=== PATIENT | female | born 1935 | race Caucasian/White ===

== ENCOUNTER 2023-10-13 11:15 | Inpatient (IN) | payer OTHER, SELFPAY ==
[2023-10-13] VITALS (35 sets, daily range): BP systolic 118–253; BP diastolic 61–158; BMI 14.3; BMI 13.0
--- NOTE | 2023-10-13 05:00 | ED.GENMED ---
History of Present Illness
General
Chief Complaint: Fall
Source: patient, ambulance crew and previous hospital records (ED visit April of this year with complaints of falls, bilateral hip pain. CT of the head, bilateral hip x-rays unremarkable. Case management consult with daughter elected to take the
patient home.)
Exam Limitations: none
Time Seen by Provider: 10/13/23 04:35
Nursing documentation reviewed up to this point in time: agreed with
History of Present Illness
History of Present Illness:
This is an 88-year-old quite frail appearing woman who resides at home with family. She has history of hypertension, hyperlipidemia, dlg-hquyddb-ltvuflmos diabetes, dementia, Parkinson's, prior UTIs who was sent to the ED by EMS after family heard
a thud and found the patient lying on the floor. She has suffered a laceration to the back of her head. Not maintained on anticoagulants.
According to EMS there was a fair amount of blood on the floor but no active bleeding from posterior scalp wound.
According to EMS family concerned that patient has had frequent falls over unknown period of time.
She also appeared somewhat lethargic for EMS but notes she is given Tylenol PM each night prior to bed.
Patient is moderately drowsy, moderately hard of hearing but opens her eyes to verbal stimuli and answers questions appropriately, she is oriented x 2. She denies headache, denies neck nor back pain.
Past History
Past History
ED Past Medical History: HTN, Hypercholesterolemia, NIDDM and Other (Urinary tract infections, dementia/Parkinson's)
ED Past Surgical History: None
Social History
Tobacco: Non-smoker
Alcohol: None
Living: with family
Family History
Family History: Other (Noncontributory)
Phy Exam
Physical Exam
Physical Exam:
GENERAL: 88-year-old quite thin and frail appearing woman. Mildly lethargic, moderately hard of hearing, opens her eyes to verbal stimuli, answering simple questions appropriately and following simple commands.
EYE: pupils equal and reactive. Extraocular muscles intact. Anicteric. There is posterior scalp laceration with overlying matted hair with dried blood. No active bleeding. Mild local tenderness to palpation but no palpable scalp hematoma nor
palpable bony abnormality.
NECK: Supple, no appreciable midline tenderness, no meningismus, no significant adenopathy.
ENT: posterior pharynx is clear, oral mucosa is mildly dry. TM clear b/l, nares patent without rhinorrhea nor epistaxis.
CARDIAC: Regular rate and rhythm. 2/6 holosystolic murmur
LUNGS: Clear breath sounds bilaterally, no acute respiratory distress, no wheezes/rales/rhonchi
ABDOMEN: Soft, nondistended, without focal tenderness, no r/g, no cvat. normoactive BS.
BACK: No midline bony tenderness. Patient able to sit up with minimal assistance. Straight leg raising is negative bilaterally. No palpable bony pelvic tenderness.
NEUROLOGICAL: Awake, mildly lethargic, oriented x 2, moderately hard of hearing. No focal neuro deficits. Motor strength is 5/5 bilaterally. Gross sensation is intact.
SKIN: Warm and dry, normal color, skin intact. No rash. There is no areas of ecchymosis nor contusions/abrasions to the extremities.
MUSCULOSKELETAL: No C/C/E. peripheral pulses are full and equal b/l. No palpable tenderness. Full range of motion of extremities without difficulty nor pain.
PSYCH: Normal and appropriate interaction.
Course
Orders/Labs/Results
Orders:
Orders
10/13/23 04:36
CT Cervical Spine W/o Iv Contr Urgent
Comment:
Reason For Exam: fall, head injury-change in MS
CT Head W/o Iv Contrast Urgent
Comment:
Reason For Exam: fall, head injury
10/13/23 05:00
Complete Blood Count/With Diff Urgent
Comprehensive Metabolic Panel Urgent
Magnesium Urgent
TSH Reflex To Free T4 Urgent
10/13/23 05:51
Urinalysis Reflex To Culture Urgent
Date Specimen was Collected: 10/13/23
Time Specimen was Collected: 05:41
Urine Microscopic Reflex Cult Urgent
Urine Culture Urgent
HOWARD Source: U
Specimen Description:
Date Specimen was Collected: 10/13/23
Time Specimen was Collected: :
Abnormal Lab Results
10/13/23 10/13/23
05:00 05:51
RBC 4.06 L 10^6/uL
(4.20-5.40)
MCH 32.3 H pg
(27.0-31.0)
Abs Immat Gran (auto) 0.1 H 10^3/uL
(0-0.05)
Immature Gran % 1.4 H %
(0-0.5)
BUN 26 H mg/dl
(7-17)
Leukocyte Esterase Rfl 1+ A
(Negative)
10/13/23 05:00
10/13/23 05:00
Vital Signs
Initial and Last Documented VS:
Initial Vital Signs
Temp Pulse Resp BP Pulse Ox
98.3 F 112 18 158/98 99
10/13/23 04:34 10/13/23 04:34 10/13/23 04:34 10/13/23 04:34 10/13/23 04:34
Last Documented Vital Signs
Temp Pulse Resp BP Pulse Ox
98.3 F 68 16 168/62 97
10/13/23 04:34 10/13/23 05:45 10/13/23 05:45 10/13/23 06:00 10/13/23 06:15
Procedures
Laceration Closure
Superior Posterior Occipital:
Status of Wound: clean
Size of Wound in cm: 2
Description of Wound Edges: sharp and surrounded by abrasion
Preparation: cleaned with saline
Anesthesia: 1% Lidocaine with epi and added Na Bicarb to local
Revision/Debridement: routine- no revision and irrigate-direct pressure
Wound exploration: explored to base- no FB
Skin Closure Material: skin justine
Number of sutures: 4
MDM/Problems Addressed
Differential Diagnosis Includes:
Elderly, frail woman suffered an unwitnessed fall striking the back of her head, has suffered a posterior scalp laceration that is yet to be further explored.
Due to advanced age, frailty, lethargy, concern for intracranial injury thus will check CT of the head as well as CT of the cervical spine.
There is no other traumatic findings of extremities and although EMS reports frequent falls, this is not reflected in patient's exam, no evidence of extremity ecchymosis acute nor subacute.
She is quite thin and frail.
If she has been suffering falls more recently, concern for anemia, electrolyte abnormality, hypothyroidism thus will check labs. Will also check urinalysis.
*Radiology
Radiology exam reviewed: radiology read reviewed
*Pulse Oximetry
Patient hypoxic: no
*Critical Care Note
Total Time (30-74mins, 75-104mins- exclusive of procedures): Not Applicable
Update Note
Update Note:
10/13/2023 0530 AM
Upon return from CAT scan, occipital scalp laceration thoroughly cleansed and irrigated with normal saline solution revealing a 2 cm vertical laceration that is only dermal in depth with minimal focal abrasion. There is no active bleeding. There
is mild local hematoma/soft tissue swelling that is mildly tender to palpation.
Laceration repaired with 4 justine.
Labs thus far unremarkable. Awaiting TSH and urinalysis. Awaiting CT results.
10/13/2023 0633 AM
Daughter is at bedside who is primary ceramic sprayer for her mom and reports that her mother does not fall often and in fact the last time she fell was April of this year and she was evaluated in this ED 1 week after fall due to bilateral hip pain.
She was discharged to home, used a walker for some time after that visit but has been doing quite well, has graduated from not requiring the walker and ambulates independently.
She does have history of dementia, worse at nighttime and was initially prescribed trazodone to take at nighttime but this was causing significant sedation thus daughter discontinue trazodone and instead has been using Tylenol PM which seems to be
effective in helping her mother sleep. She believes she got up out of bed and tripped over her dog which caused her fall tonight.
CT of the head concerning for subtle subdural hematoma left tentorial as well as a tiny hemorrhagic contusion left frontal lobe measuring [address] of the cervical spine is unremarkable. There is no calvarial fracture.
Case discussed with neurosurgery, Dr. Ling, images reviewed. [place] text, She recommends patient remain at [facility], admit to ICU with plan to repeat CAT scan in 6 hours.
Will admit to hospitalist service.
ED Attending Note
-
Portions of this chart may have been created with voice recognition software.� Occasional wrong word or��sound alike� substitutions may have occurred due to the inherent limitations of voice recognition software.
Discharge Plan
Departure
Patient Disposition: Admit
Date of Disposition: 10/13/23
Time of Disposition: 06:37
Admit to: ICU
Presentation/result/management discussed w/ accepting MD/DO: Hospitalist
Discharge Problem:
mechanical fall at home, small acute subdural hematoma, small hemorrhagic contusion L frontal
Referrals:
UNKNOWN - PT NOT,INTERVIEWE [Unknown Provider] -
Interventions
Interventions:
*Risk Screen - Suicide Last Done: 10/13/23 04:34
*General Assessment Last Done: 10/13/23 04:34
*Neglect/Abuse Screening Last Done: 10/13/23 04:34
*ED COVID-19 Vaccine History Last Done: 10/13/23 04:34
ED-Musculoskeletal Assessment Last Done: 10/13/23 04:40
ED- Neurological Assessment Last Done: 10/13/23 04:40
ED-Skin Assessment Last Done: 10/13/23 04:40
Discharge Date and Time
Print Language: POLISH
[2023-10-13 05:08] LABS: % Basophils 0.9 % (0-2); % Eosinophils 1.9 % (0-6); % Immature Granulocytes 1.4 % (0-0.5); % Lymphocytes 30.8 % (20.5-51.1); % Monocytes 5.9 % (1.7-9.3); % Neutrophils 59.1 % (42.2-75.2); Absolute Basophils 0.1 10^3/uL (0-0.2); Absolute Eosinophils 0.2 10^3/uL (0-0.7); Absolute Immature Granulocytes 0.1 10^3/uL (0-0.05); Absolute Lymphocytes 2.7 10^3/uL (1.2-3.4); Absolute Monocytes 0.5 10^3/uL (0.1-0.6); Absolute Neutrophils 5.1 10^3/uL (1.4-6.5); Hematocrit 38.5 % (37.0-47.0); Hemoglobin 13.1 g/dL (12.0-16.0); Mean Corpuscular Hgb 32.3 pg (27.0-31.0); Mean Corpuscular Volume 94.8 fL (81.0-99.0); Nucleated Red Blood Cells % 0 %; Platelet Count 292 10^3/uL (130-400); Red Blood Cell Count 4.06 10^6/uL (4.20-5.40); Red Cell Dist. Width 13.2 % (11.5-14.5); White Blood Cell Count 8.6 10^3/uL (4.8-10.8)
[2023-10-13 05:29] LABS: ALT (SGPT) 11 U/L (0-35); AST (SGOT) 14 U/L (14-36); Albumin 4.4 g/dl (3.5-5.0); Alkaline Phosphatase 97 U/L (38-126); Blood Urea Nitrogen 26 mg/dl (7-17); Calcium 9.8 mg/dl (8.4-10.2); Carbon Dioxide 30 mmol/L (22-30); Chloride 105 mmol/L (98-107); Estimated Creatinine Clearance 24 ml/min; Glucose 98 mg/dl (70-99); Sodium 141 mmol/L (135-145); Total Bilirubin 0.8 mg/dl (0.2-1.3); Total Protein 7.5 g/dl (6.3-8.2); eGFR > 60.00
[2023-10-13 06:00] LABS: TSH Reflex To Free T4 2.89 uIU/ml (0.47-4.68)
[2023-10-13 06:13] LABS: Urine Albumin Negative (Neg - Trace); Urine Bilirubin Negative (Negative); Urine Character Clear (Clear); Urine Color Straw; Urine Glucose Negative (Negative); Urine Ketone Negative (Negative); Urine Leukocyte 1+ (Negative); Urine Nitrite Negative (Negative); Urine Occult Blood Negative (Negative); Urine Specific Gravity 1.005 (<1.030); Urine Urobilinogen Negative (Neg - 1+)
[2023-10-13 06:39] LABS: Urine Bacteria Many (Negative); Urine Squamous Cell >30 /LPF (Few)
[2023-10-13 06:40] LABS: Urine Red Blood Cell 0-2 /HPF (0-2); Urine White Cell 21-25 /HPF (0-5)
[2023-10-13 07:06] LABS: APTT 26.1 Sec (23.4-35.0); INR 0.94; PT 12.6 Sec (11.4-14.6)
[2023-10-13] MEDS: APRESOLINE 10 MG IV (08:00)
[2023-10-13] MEDS: OFIRMEV 100 IV (09:15)
--- NOTE | 2023-10-13 10:03 | ED.ATTNOTE ---
ED Attending Note
ED Attending Note
Patient seen and examined by attending physician: Yes
I performed the substantive portion of visit, reviewed & personally made and approve the management plan that is documented in note by myself or NARGIS.: Yes
ED Attending Note:
10:00 AM patient appears very anxious and is crying. She denies worsening headache but is less directable. Patient will be given a small amount of Ativan so she relaxes and we will repeat the CT head to make sure that there is no change in the
subdural hematoma.
-
Portions of this chart may have been created with voice recognition software.� Occasional wrong word or��sound alike� substitutions may have occurred due to the inherent limitations of voice recognition software.
[2023-10-13] MEDS: ATIVAN 0.5 MG IV ×2 (10:11→22:33)
--- NOTE | 2023-10-13 11:54 | CON.INTV ---
Addendum entered and electronically signed by Brian Escalona MD 10/13/23 12:14:
Additional hx from daughter obtained by phone.
Baseline, patient is able to ambulate with walker and assistance. She is also able to feed herself, does talk. She does have periods of of increased lethargy and unresponsiveness which did not attribute to her dementia/Parkinson's
Encouraged daughter to discuss with son (Nicholas) who is power of corporate attorney advanced directives
Sequential teds for DVT prophylaxis. Hold on chemical prophylaxis until follow-up imaging confirm stability
Original Note:
Consultation
Consultation Request
Date/Time Consultation Requested: 10/12
Date/Time Consultation Performed: 10/12
Reason for Consultation: Critical care
Medical History
-
History of Present Illness:
History obtained from the chart as patient is not able to give much history. Patient was brought to [facility] by ambulance crew because of fall. Patient resides at home with family. She has a history of Parkinson's, dementia, diabetes,
recurrent UTIs. She was found lying on the floor and had a laceration on the back of her head. Per ED records, there was blood on the floor. Upon arrival to [facility], patient afebrile, pulse 112, breathing 18, blood pressure 158/98,
99%. Patient apparently has a history of multiple falls. CT head reveals subtle subdural hematoma in the left tentorial region, measuring 6 mm. Cervical spine imaging negative. Patient was admitted to ICU for monitoring. Neurosurgery aware
Patient is following commands, moving extremities, speaks 1 word answers but in general is lethargic. She is able to lift her head up. Pupils are equal and reactive
She relayed to the nurse that she would like to go home
.
PMH: Parkinson's dementia, recurrent UTIs, history of multiple falls in the past last April 2023 with hip contusion, hypertension, hyperlipidemia, diabetes
Past Medical History
Past Medical History: None (Per HPI)
Past Surgical History: None (Per HPI)
Social History
Tobacco: Non-smoker
Alcohol: None
Drug: None
Living: With Family
Family History
Family History: Unable to Obtain
Allergies / Home Medications
Allergies
Allergy/AdvReac Type Severity Reaction Status Date / Time
No Known Allergies Allergy Verified 10/13/23 07:22
Home Medications
�Medication �Instructions �Recorded �Confirmed �Last Taken �Type
diphenhydramine 25 1 tab PO HS Sleep 10/13/23 10/13/23 10/12/23 History
mg-acetaminophen 500 mg tablet
(Tylenol PM Extra Strength)
Review of Systems
-
Unable to Obtain full review of systems at this time due to: Dementia
Vitals / Labs / Diagnostic Testing
Vital Signs
Temp Pulse Resp BP Pulse Ox
98.5 F 84 16 181/66 99
10/13/23 09:25 10/13/23 11:45 10/13/23 11:45 10/13/23 11:45 10/13/23 11:45
Lab Data
10/13/23 05:00
10/13/23 05:00
Laboratory Results
10/13/23
06:31
PT 12.6
INR 0.94
APTT 26.1
Diagnostic Testing:
Physical Exam
-
HEENT: Normocephalic, Anicteric and Other (Cachectic)
Cardiovascular: S1/S2, Regular Rhythm, Murmur (1-2/6) and Rub (n)
Respiratory: Wheeze (n), Rales (n), Rhonchi (n) and Non-Labored Respirations
GI: Soft, Non Distended and Non Tender
Neurology: Other (Lethargic but arousable. Moves extremities to command, able to lift head up minimally)
Skin: Other (No clubbing, cyanosis) and Other (Scalp laceration noted, minimal swelling, no active bleeding)
General: Comfortable
Assessment
-
88-year-old female with Parkinson's dementia, history of falls in the past, last fall April 2023 with hip contusion, apparently fell was found lying on the floor with blood and laceration to the back of the head. Small subdural hematoma 6 mm
noted per imaging. Patient admitted to ICU for monitoring
Status post fall, subdural hematoma 6 mm
History of falls per records
Last fall April 2023 per family
Parkinson's dementia
Aortic sclerosis murmur
Mild pulm hypertension per echo 2014
Hypertension/hyperlipidemia
History of recurrent UTIs
Diabetes
Cachexia
Plan/recommendations
At this time, patient appears to be comfortable
She is without complaints. Hypertension noted
Scalp laceration noted
Patient is not on any blood thinners
Moving forward
Continue with frequent neurochecks
Monitor blood pressure. Avoid hypotension
Maintain systolic pressure greater than 110
Follow blood sugars
Normal saline IV fluids
End-tidal CO2 monitoring
Head of bed elevated
Reviewed with critical care nursing
We will follow
--- NOTE | 2023-10-13 12:00 | PTCARENOTE ---
1130-Received pt from Ed via stretcher.
Pt awakens to persistent voice and light tactile stimuli.Oriented to name and date only.+ 5/5 JOYNER.No drift or droop.No dysarthria or dysphasia.No visual disturbance noted.Pt is forgetful.Occasionally anxious.BL legs over the side rail. Pt
states ' I want to go home'. Reoriented frequently.Pulling at monitoring equipment.Non violent restraints intact.SR with PAC's noted.O2 2l NC with CO2 monitoring intact.POX 98%Decreased breath sounds bibasilar.NPO.Awaiting ST for swallow eval.No
BM.Bladder scanned 0 ml.Purewick draining small amount yellow urine.Posterior head laceration intact and draining small amount serosang drainage.Plan of care discussed with pt.
--- NOTE | 2023-10-13 12:21 | HPS.HSE ---
Addendum entered and electronically signed by Angella White MD 10/13/23 13:28:
I personally performed a history and physical exam of the patient and discussed management with the resident. I reviewed the resident's note and agree with the documented findings and plan of care HPI/CC by Dr. Felder.
GENERAL: cachectic, apparently demented female in no apparent distress--poor skin turgor
HEENT: scalp hematoma/laceration
HEART: irreg irreg with murmur
LUNGS : clear to auscultation bilaterally
ABDOM: soft, nontender, nondistended, + bowel sounds
EXT: no cyanosis, clubbing, or edema
NEUROLOGIC: apparent dementia--moves all extremities
: purewick in place with diaper
Allergies
Allergy/AdvReac Type Severity Reaction Status Date / Time
No Known Allergies Allergy Verified 10/13/23 07:22
Home Medications
diphenhydramine 25 mg-acetaminophen 500 mg tablet (Tylenol PM Extra Strength) 1 tab PO HS Sleep 10/13/23
Fall--unclear cause--mechanical? syncope? resulting in Subdural hematoma--CT of the head shows a small subdural hematoma with a size of 6 mm--ADMIT to ICU--consult garage door opener installer and neurosurgery--PT/OT--serial CT scans--keep SBP < 160
Parkinson's with likely dementia-- Considering evaluation for Lewy body dementia
Aortic sclerosis murmur (presumed, last echo 2014)--Will order a new echocardiogram to assess any changes since prior echo was conducted
Essential Hypertension--Initial blood pressure was 158/98 and it slowly increased to 188/108 during physical exam. Increased blood pressure may be due to agitation and pain s/p fall--cont labetalol with parameters
Hyperlipidemia--Will order lipids
Xdj-qerzphi-utuipuljt type 2 diabetes--consider accuchecks and SSI
Cachexia--Patient's BMI is 12.9 which categorized that the patient is underweight at the present time. The patient's skin turgor is poor and it appears that this patient does not have sufficient caloric intake.
DVT proph
code status -- FULL CODE
Original Note:
Family Physician
-
Family Physician: Maykel Hansen
Chief Complaint
-
Head Injury status post fall
History of Present Illness
The patient is an 88-year-old frail woman who lives with her family. Family heard her thyroid and found the patient on the floor. There was a fair amount of blood on the floor when she was found. Family is concerned about frequent falls and
weakness, patient also presented to the emergency department on April 21, 2023 for a fall as well. Patient was also seen in the emergency department in 2019 due to persistent weakness.
Medical History
Past Medical History
Past Medical History: Reports Dementia, HTN and Hypercholesterolemia
Additional Past Medical History:
Non-Insulin dependent diabetes
Parkinson's
Multiple UTIs
Fall with hip contusion
Past Surgical History: Reports Other (Patient has dementia and was unable to answer this question)
Social History
Unable to obtain full social history at this time due to: Dementia
Family History
Family History: Unable to Obtain
Allergies / Home Medications
Allergies reflects when Allergies were last updated in [facility].
Home Medications with original date entered in [facility]
Allergy/Medication List:
Tylenol PM
If medication reconciliation has not been performed, why?: Dementia
Review of Systems
-
Unable to obtain full review of systems at this time due to: Dementia
Psych: Reports Anxiety
Physical Exam
Vital Signs
Vital Signs
Temp Pulse Resp BP Pulse Ox
98.5 F 84 16 181/66 99
10/13/23 09:25 10/13/23 11:45 10/13/23 11:45 10/13/23 11:45 10/13/23 11:45
Physical Exam
General: Appears in Distress and Other (Underweight)
Cardiac: Murmur and Rub
Breast: Deferred by me
GI: Soft, Non Tender and Non Distended
Rectal: Deferred by Provider
Genito-urinary: Deferred by me
Musculoskeletal: No Clubbing and No Edema
Skin: Other (Poor skin turgor)
Neuro: Tremors and Other
Psych: Apparent Dementia
Laboratory Results
-
10/13/23 05:00
10/13/23 05:00
Laboratory Results
PT 12.6 Sec (11.4-14.6) 10/13/23 06:31
INR 0.94 10/13/23 06:31
APTT 26.1 Sec (23.4-35.0) 10/13/23 06:31
Total Bilirubin 0.8 mg/dl (0.2-1.3) 10/13/23 05:00
AST 14 U/L (14-36) 10/13/23 05:00
ALT 11 U/L (0-35) 10/13/23 05:00
Alkaline Phosphatase 97 U/L (38-126) 10/13/23 05:00
Impression/Plan
-
Impression and Plan:
- Subdural hematoma s/p fall:
CT of the head shows a small subdural hematoma with a size of 6 mm
Patient admitted to the ICU for monitoring
History of falls as per record
- Parkinson's dementia:
May be a component of long-term complications of Parkinson's disease. Considering evaluation for Lewy body dementia
- Aortic sclerosis murmur:
Murmur heard on auscultation
Echocardiogram conducted on January 16, 2015 showed aortic sclerosis without stenosis and mild aortic regurgitation. There was trace tricuspid regurgitation. Mild pulmonic regurgitation.
Will order a new echocardiogram to assess any changes since prior echo was conducted.
- Hypertension:
Initial blood pressure was 158/98 and it slowly increased to 188/108 during physical exam. Increased blood pressure may be due to agitation and pain s/p fall. We will continue to monitor the patient and assess whether antihypertensive meds are
warranted.
- Hyperlipidemia:
Will order LFTs to assess hyperlipidemia.
- Urb-vqydzbf-zebdeqyyy type 2 diabetes:
Daily chemistry will be taken in order to determine the diabetic status of this patient and whether any diabetic medications are warranted at this time.
- Cachexia:
Patient's BMI is 12.9 which categorized that the patient is underweight at the present time. The patient's skin turgor is poor and it appears that this patient does not have sufficient caloric intake. Will hiv counselor patient and family on improved
diet for patient.
- Repeated Falls:
Will hiv counselor the patient and family on how to make lifestyle changes in order to reduce the risk of fall in the future. Interventions include improving the walkability of the patient's residence and any medication adjustments that may be necessary.
[2023-10-13 12:35] LABS: Glucose - Point of Care 103 mg/dl (70-99)
--- NOTE | 2023-10-13 12:45 | PTOTSP ---
Speech Language Pathology
Pt seen for cognitive-linguistic evaluation. Evaluated via informal tasks, as eyes not open/decreased alertness to be able to complete paper test. She was oriented to name and only. Not oriented to location. Oriented to location multiple
times, but pt unable to recall this, even immediately. Simple yes/no questions= no response at times, but 80% accurate when responding. Unrelated responses noted at times, such as pt stating 'They heal quickly' when asked if she had trouble
swallowing.
Pt also seen for clinical bedside swallow evaluation. P.O. trials of puree, regular solids, and thin liquids provided. Pt had to be adequately roused throughout all P.O. trials. Biting on straw until opened eyes to see straw, and then she was
able to adequately suck on straw. Slightly prolonged mastication of regular solids, at least partially related to decreased alertness. Audible swallow noted, especially with solids, but no overt signs of aspiration.
Recommend:
(1) IDDSI Level 5 (Minced/Moist) and Thin liquids ONLY WHEN ALERT
(2) Aspiration precautions: feed only when alert, full supervision, sit upright, slow rate
(3) Meds crushed in puree
(4) RETORT LOADER to continue to follow
--- NOTE | 2023-10-13 14:12 | PTCARENOTE ---
Addendum entered by Thao Moralez RN 10/13/23 15:23:
Swallow screen completed by Speech therapist.Moist and minced ordered as per MD.
Original Note:
Pt's daughter Pat at bedside.Plan of care discussed.
--- NOTE | 2023-10-13 14:34 | PTCARENOTE ---
# [address] Gonzalez.Will be completed at 2200 unless there are neurological changes.
[2023-10-13] MEDS: D5/0.9% SODIUM CHLORIDE 1000 IV (14:42)
--- NOTE | 2023-10-13 14:52 | CON.NS ---
Consultation
-
Date/Time Consultation Performed: 10/13/2023; 14:52
Chief Complaint
History of Present Illness
This is a neurosurgical consultation on an 88-year-old female, who presented early this morning, after sustaining a fall. She lives with her family, the patient's family heard a thud and found the patient on the floor. Patient had a noncontrast
head CT, which demonstrated questionable subdural hematoma, with a possible left frontal IPH/contusion.
Patient seen and examined. Patient received sedation for CT scan. No family at bedside. Nurse reported the family did present earlier.
Review of Systems
-
Unable to obtain full review of systems at this time due to: Dementia and Other (Patient is sleepy from receiving sedation for CT scan)
Medication and Allergies
Home Medications
Home Medications
�Medication �Instructions �Recorded
diphenhydramine 25 1 tab PO HS Sleep 10/13/23
mg-acetaminophen 500 mg tablet
(Tylenol PM Extra Strength)
Allergies
Allergies
Allergy/AdvReac Type Severity Reaction Status Date / Time
No Known Allergies Allergy Verified 10/13/23 07:22
Physical Exam
-
Exam:
Turns head to voice. Keeps eyes closed. Resists eye opening. Moans
Pupils are equal reactive.
Moves all extremities spontaneously and symmetrically.
Cachectic appearing
Head is normocephalic
Neck is soft
Abdomen is soft
Breathing is nonlabored
Extremities are nonedematous
Noncontrast head CT performed at approximately 5 AM demonstrates a subtle increased density of the left tentorium consistent with possible acute tentorial subdural hematoma. Additionally there is a focus of hyperdensity within the left inferior
frontal lobe, which may be consistent with frontal contusion. Repeat imaging performed at approximately 11:15 AM demonstrates stable findings, without any evidence of increase.
Assessment / Plan
-
This is an 88-year-old female with reported dementia, Parkinson's disease, lives with family at home, who presents after stating a fall early this morning. Imaging demonstrates a subtle tentorial subdural hematoma without any evidence of brain
compression. There is also small hyperdensity within the medial left frontal lobe, which may be consistent with contrecoup small contusion. Repeat imaging is stable. Patient appears to be at her neurological baseline.
No further imaging, unless examination changes
Okay for DVT prophylaxis on 10/14/2023.
Okay to advance diet as tolerated.
Okay to downgrade out of ICU on 10/14/2023
Maintain systolic blood pressures less than 140
Patient can go home per my specialty: Tomorrow
[2023-10-13] MEDS: TRANDATE 5 MG IV (16:30)
[2023-10-13] MEDS: TYLENOL/FEVERALL 650 MG RECTAL (16:33)
--- NOTE | 2023-10-13 16:39 | PTCARENOTE ---
Pt assessed.Pt is more alert.Conversation intermittently confused.c/o hunger.Dinner ordered.c/o headache medicated with Tylenol.IVF infusing as ordered.BP 195/100.Labetalol given as ordered.
[2023-10-13] MEDS: TRANDATE 10 MG IV (19:39)
--- NOTE | 2023-10-13 20:02 | W.PN.UPDATE ---
Update Note
Progress Note Update
Spoke with patient's son Nicholas Dubois. He has discussed with his sister Amy Leigh, they have paperwork for POA and patient is a DNR. Reviewed code status, they would like no heroic measures, and answered all questions, will update orders in
the computer to DNR/DNI.
[2023-10-13] MEDS: CARDENE 200 IV (20:24)
--- NOTE | 2023-10-13 21:14 | PTCARENOTE ---
received pt from [facility], patient had gotten out of her restraints, pulled out all remaining IV's - IV team called, PLANNING CONSULTANT updated ,new order for 4 point soft and mitts. patient very aggitated and restless, confused but speaking, moving all
extremities, no c/o pain nor any obvious signs or symptoms.
patient moans and cries out excessively not able to console - spb >200 despite iv labetelol, ama tenorio initiated
spoke with daughter and updated her regarding her moms condition and how we were using 4 point restraints, placing new IV's and her elevated blood pressure. when i told the daughter that i noticed her mom was a full code in the computer, the
daughter responded 'whats that mean' i informed her as to what a full code constitutes, and the daughter said that is not what was in her mothers living will. she put her brother on the phone who is her POA, and he informed me that his mom had a
living will that stated no advanced measures for prolonging of life.
i passed him to renetta (PLANNING CONSULTANT) and she was able to confirm and patient is now a DNR/DNI
frequent neuro checks. circulation checks and turning patient to prevent skin breakdown.
awaiting corporation pilot from radiology to bring patient for CT
[2023-10-13] MEDS: NSS (PRESERVATIVE FREE) 0.25 ML IV (22:33)
[2023-10-14] VITALS (42 sets, daily range): BP systolic 121–188; BP diastolic 47–90; BMI 13.2
[2023-10-14] MEDS: D5/0.9% SODIUM CHLORIDE 1000 IV (02:32)
[2023-10-14 03:44] LABS: Hematocrit 38.8 % (37.0-47.0); Hemoglobin 13.3 g/dL (12.0-16.0); Mean Corp Hgb Conc. 34.3 g/dL (33.0-37.0); Mean Corpuscular Volume 93.3 fL (81.0-99.0); Mean Platelet Volume 8.9 fL (7.4-10.4); Platelet Count 297 10^3/uL (130-400); Red Blood Cell Count 4.16 10^6/uL (4.20-5.40); Red Cell Dist. Width 13.2 % (11.5-14.5); White Blood Cell Count 11.7 10^3/uL (4.8-10.8)
[2023-10-14 03:55] LABS: INR 0.98
[2023-10-14 03:56] LABS: APTT 28.7 Sec (23.4-35.0)
[2023-10-14 03:58] LABS: ALT (SGPT) 14 U/L (0-35); AST (SGOT) 15 U/L (14-36); Albumin 4.4 g/dl (3.5-5.0); Alkaline Phosphatase 91 U/L (38-126); Blood Urea Nitrogen 17 mg/dl (7-17); Calcium 9.5 mg/dl (8.4-10.2); Carbon Dioxide 26 mmol/L (22-30); Chloride 106 mmol/L (98-107); Estimated Creatinine Clearance 28 ml/min; Glucose 139 mg/dl (70-99); Magnesium 1.8 mg/dl (1.6-2.3); Potassium 3.4 mmol/L (3.5-5.1); Sodium 140 mmol/L (135-145); Total Cholesterol 255 mg/dl (50-199); Total Protein 7.2 g/dl (6.3-8.2); Triglyceride 62 mg/dl (10-149); Very Low Density Lipoprotein 12 mg/dl (0-30); eGFR > 60.00
[2023-10-14 04:08] LABS: HDL Cholesterol 117 mg/dl; LDL Cholesterol, Calculated 126 mg/dl
[2023-10-14 04:20] LABS: Troponin I 0.133 ng/ml
--- NOTE | 2023-10-14 04:48 | PTCARENOTE ---
patient started on cardene for elevated sbp, >200. patient also given prn ativan prior to transport to CT results,
[2023-10-14] MEDS: CARDENE 200 IV (05:20)
[2023-10-14] MEDS: KCL 160 MEQ IV (06:12)
--- NOTE | 2023-10-14 07:17 | W.PN.INTV ---
Today's Communication / Plan
Recommendations
Labetalol as needed
Wean off Cardene
Consider low-dose subcutaneous heparin for DVT prophylaxis. Patient high risk. Okayed by neurosurgery
Follow-up imaging stable
Potassium has been repleted
Ongoing discussion regarding goals of care
Possible transfer out of ICU later today. We will sign off once transferred, please call with question
Assessment
-
88-year-old female with Parkinson's dementia, history of falls in the past, last fall April 2023 with hip contusion, apparently fell was found lying on the floor with blood and laceration to the back of the head. Small subdural hematoma 6 mm
noted per imaging. Patient admitted to ICU for monitoring
Status post fall, subdural hematoma 6 mm
History of falls per records
Last fall April 2023 per family
Parkinson's dementia
Aortic sclerosis murmur
Mild pulm hypertension per echo 2014
Hypertension/hyperlipidemia
History of recurrent UTIs
Diabetes
Cachexia
Plan/recommendations
At this time, patient appears to be comfortable
Issues overnight noted with agitation, requiring restraints. Patient pulled out multiple IVs, yelling and screaming
Received 0.5 mg of Ativan
This morning, appears to be more comfortable. Required Cardene drip for systolic pressure greater than 200s
Presently she is without complaints
Repeat head CT imaging with stable small subdural hematoma
Patient DNR status was confirmed and requested by family
Moving forward
Wean off Cardene
Labetalol, as needed
Discontinue neurochecks, and age. Difficult to obtain due to severe dementia
Follow blood sugars
Normal saline IV fluids
Discontinue end-tidal CO2 monitoring
Head of bed elevated
Will start DVT prophylaxis: Consider 2500 units every 12 hours subcutaneous heparin. Will review with pharmacy
Sequential teds as able
Contacted family to discuss goals of care (Nicholas)
Await callback
Would strongly consider minimizing intervention given Parkinson's dementia
Await discussion with family
Once weaned off Cardene, will transfer out of ICU. We will sign off. Please call with questions
Subjective Dataa
Subjective Data
Date of Service:
Date of Service: October 14, 2023
Subjective:
Significant issues with agitation overnight, screaming, yelling, pulling out IVs. Blood pressure increased greater than 200s at times, received labetalol. Cardene drip was started. Presently, patient appears to be comfortable, restrained. She is
disoriented but answering questions appropriately. She denies chest pain, shortness of breath
Objective Data
Data Reviewed
Vital Signs / I&O / Oxygen:
Vital Signs
Temp Pulse Resp BP Pulse Ox
97.6 F 69 19 152/71 98
10/14/23 07:10 10/14/23 05:45 10/14/23 05:45 10/14/23 05:30 10/14/23 05:45
Intake and Output
10/13/23 10/14/23 10/15/23
06:59 06:59 06:59
Intake Total 1625.0 / 1625.0
Output Total 325 / 325
Balance 1300.0 / 1300.0
SaO2 98
Nasal Cannula flow liters per 2
minute
Physical Exam
General: Comfortable
HEENT: Normocephalic and Anicteric
Cardiovascular: S1-S2, Regular Rhythm, Murmur (2/6) and Rub (n)
Respiratory: Wheeze (n), Crackles (n), Rhonchi (n) and Non-Labored Respirations
GI: Soft, Non Distended and Non Tender
Neurology: Awake, Alert and No Motor Deficits (Moving all extremities, in restraints. Disoriented)
Skin: Good Color (n), Cyanosis (n) and Bruising (Few scattered)
Labs/Micro/Reports
Lab Data
10/14/23 03:35
10/14/23 03:35
Laboratory Results
10/14/23
03:35
PT 13.0
INR 0.98
APTT 28.7
--- NOTE | 2023-10-14 09:52 | PTCARENOTE ---
Patient received per order worklist. Restraints maintained for patient safety. Cardene weaned per orders. Patient oriented to self. Pond Scaler updated and orders noted.
--- NOTE | 2023-10-14 10:18 | CM ---
Addendum entered by Bianca Castellon 10/14/23 17:02:
Patient son and daughter met with patient physician and plan is for patient to go home with VN supports. CM went to room and family had left. CM left message for son to inquire as to which VN he would like to use and to review IMM. VM left await
call back.
Original Note:
Patient seen at bedside. Patient confused and in restraints. CM called to patient daughter and unable to leave VM, CM called to patient son and VM left requesting call back. Nursing made aware of request to talk to patient family. CM made aware that
patient now DNR, per physician. Per chart review and discussion with nursing it appears that patient lives with patient daughter. DME at home is uncertain, Patient PCP is Dr. Hansen and she uses the [facility] in [place] per chart. CM will continue to
follow for discharge planning needs.
Plan; TBD
[2023-10-14 11:57] LABS: Glycohemoglobin (HgbA1c) 5.9 % (4.0-5.6)
[2023-10-14] MEDS: TRANDATE 5 MG IV ×2 (12:08→12:55)
[2023-10-14 12:22] LABS: Glucose - Point of Care 203 mg/dl (70-99)
--- NOTE | 2023-10-14 12:31 | PTCARENOTE ---
Reassessed daughter updated at bedside. Accucheck 203, hospitalist and pharmacist updated and orders pending. Cardene off, see PRN for hypertension
[2023-10-14] MEDS: LR 1000 IV (12:57)
[2023-10-14] MEDS: D5/0.9% SODIUM CHLORIDE IV (13:03)
--- NOTE | 2023-10-14 14:44 | PN.CDI ---
CDI
- -
CDI:
Physician Documentation Request
Admit Date: 10/13/23 11:15
Dear Doctor Cindy,
Patient is described in progress notes as cachectic. Hospitalist progress note includes underweight.
10/13 note states ' Pt observed with temporal depression, hallow orbit, protruding clavicle, exposed ribs, Pt meets ASPEN and AND criteria for severe protein calorie malnutrition of chronic illness with wt loss and muscle/fat loss. '
Based on the above information and your assessment, which of the following most accurately represents the patient's nutritional status?
Malnutrition (specify if mild, moderate or severe)
Cachexia without malnutrition
Underweight without malnutrition
Other (please specify)
[place] Criteria ([facility] Hospitalist 2017)
2 or more criteria must be present for either
non severe or severe malnutrition
Note that the criteria differs related to the
presence of an acute or chronic illness
Acute Illness Chronic Illness
Energy Intake Non Severe: <75% for >7 days Non Severe: <75% for >1 month
Severe: <50% for >5 days Severe: <75% for >1 month
Weight Loss Non Severe: 1-2% over 1 week Non Severe: 5% over 1 month
5% over 1 month 7.5% over 3 months
7.5% over 3 months 10% over 6 months
1 year N/A 20% over 1 year
Severe: >2% over 1 week Severe: >5% over 1 month
>5% over 1 month >7.5% over 3 months
>7.5% over 3 months >10% over 6 months
1 year N/A >20% over 1 year
Body Fat Non Severe: Mild Decrease Non Severe: Mild Loss
Severe: Moderate Decrease Severe: Severe Loss
Muscle Mass Non Severe: Mild Decrease Non Severe: Mild Loss
Severe: Moderate Decrease Severe: Severe Loss
Fluid Accumulation Non Severe: Mild Accumulation Non Severe: Mild Accumulation
Severe: Moderate to severe Severe: Moderate to severe
accumulation accumulation
Reduced Manager Family Strength Non Severe: N/A Non Severe: N/A
Severe: Measurably reduced Severe: Measurably reduced
Additional criteria that can be used to Determine if Mild or Moderate Malnutrition ([employer] Manual 2018)
Mild Moderate Severe
Albumin gm/dl <3.0 gm/dl <2.5 gm/dl <2.0 gm/dl
Pre Albumin mg/dl <15 gm/dl <10 mg/dl <5.0 mg/dl
BMI <18.5 <17 <16
Use of terms such as suspected, likely, concern for, or probable (associated with a specific diagnosis that is being evaluated, monitored, or treated as if it exists) are acceptable and can be coded in the inpatient setting, when documented at the
time of discharge.
Thank you,
Felecia Tan RN, BSN
CDI Specialist
tiger text
Please use your independent medical judgment in providing your response.
--- NOTE | 2023-10-14 15:23 | PTCARENOTE ---
Addendum entered by Chin Adam RN 10/14/23 16:33:
Reassessed patient no change, messaged hospitalist, orders pending.
Original Note:
Patients blood pressure trending per work list. David texed Dr. Felder requesting for patient to be downgraded.
--- NOTE | 2023-10-14 15:46 | W.PN.HOSP.TC ---
Addendum entered and electronically signed by Angella White MD 10/14/23 19:25:
I saw and evaluated the patient independently. I reviewed the resident�s note and agree with findings and plan as documented by Dr. Felder.
GENERAL: cachectic, apparently demented female in no apparent distress--poor skin turgor
HEENT: scalp hematoma/laceration--justine in place
HEART: irreg irreg with murmur
LUNGS : clear to auscultation bilaterally
ABDOM: soft, nontender, nondistended, + bowel sounds
EXT: no cyanosis, clubbing, or edema
NEUROLOGIC: apparent dementia--moves all extremities
: purewick in place with diaper
Fall--unclear cause--mechanical? syncope? resulting in Subdural hematoma--CT of the head shows a small subdural hematoma with a size of 6 mm--apprec purse maker and neurosurgery--PT/OT--serial CT scans without change--keep SBP < 160
Parkinson's with likely dementia-- Considering evaluation for Lewy body dementia
Aortic sclerosis murmur (presumed, last echo 2014)--Will defer checking echocardiogram to assess any changes since prior echo was conducted
Essential Hypertension--Initial blood pressure was 158/98 and it slowly increased to 188/108 during physical exam. Increased blood pressure may be due to agitation and pain s/p fall--cont hydralazine
Hyperlipidemia--noted
Zyb-vnlwcsy-dwccrcsyn type 2 diabetes--consider accuchecks and SSI
Cachexia--Patient's BMI is 12.9-- severe protein calorie malnutrition of chronic illness with wt loss and muscle/fat loss
DVT proph
code status --DNR/DNI
Had family meeting with patient's son and daughter. Explained palliative care/hospice philosophy. I do not believe the patient meets criteria for hospice at this time. Family is in agreement. They wish to take her home tomorrow. Case management
aware, however, family left before case management could arrange visiting nurses.
Original Note:
Today's Communication/Plan
-
Neurosurgery consult has assessed the patient and concluded that there is no need for further imaging and DVT prophylaxis is appropriate. They also stated that the patient is ready for discharge. Met with family and discussed long-term options for
patient and themselves. Palliative care and hospice care logistics discussed. Family opted to not utilize palliative care or hospice care at the present time. Instead, they prefer to utilize visiting nurses to help with patient care in the home
setting. Coordinating with case management to attain visiting nurses for patient. We will move forward with discharge planning. Tentative plan to be discharged to her son's home under the care of her son and her daughter tomorrow.
Assessment / Plan
Assessment / Plan
- Subdural hematoma s/p fall:
Subdural hematoma size [address] scan. Not increasing in size. Imaging demonstrates a stable tentorial subdural hematoma without any evidence of brain compression. No surgical intervention warranted.
- Fall:
Unclear cause, unsure if it was mechanical or syncopal. Fall resulted in a subdural hematoma size 6 mm. Neurosurgery consult concluded that surgical intervention was not warranted. Patient is okay for DVT prophylaxis. Also recommendation for
downgrade out of ICU to medical surge.
-Parkinson's with likely dementia:
Possible Lewy body dementia. Considering evaluation.
-Cardiac murmur - Presumed Aortic Sclerosis Murmur from 2014 echo:
Considering ordering a new echocardiogram to assess any changes - no echocardiogram will be conducted due to uncertain benefit to long-term outcomes for this patient and her quality of life.
Troponin 0.133 on 10/13 which is elevated.
Anticipated Discharge: Within 24 hours
Subjective/Interval History
-
Date of Service: October 14, 2023
Met with patient at the bedside. Overnight patient managed to get out of her soft restraints and pulled out all of her IVs. New restraints were placed and the patient is safely laying in bed. Nicardipine 40 mg given for systolic blood pressure
above 200. Patient continues to present as confused and her comments in discussion are sometimes not coherent.
Objective Data
-
Labs:
Laboratory Results
07/05/24
03:35
WBC 11.7 H
Hgb 13.3
Hct 38.8
Plt Count 297
PT 13.0
INR 0.98
APTT 28.7
Sodium 140
Potassium 3.4 L
Chloride 106
Carbon Dioxide 26
BUN 17
Creatinine 0.7
Glucose 139 H
Calcium 9.5
Total Bilirubin 1.0
AST 15
ALT 14
Alkaline Phosphatase 91
Vital Signs:
Vital Signs
Temp Pulse Resp BP Pulse Ox
97.5 F 80 18 170/79 97
10/14/23 15:17 10/14/23 15:15 10/14/23 15:15 10/14/23 15:00 10/14/23 15:15
I&O
10/13/23 10/14/23 10/15/23
06:59 06:59 06:59
Intake Total 1625.0 / 1762.5 1292.5 / 1292.5
Output Total 325 / 325
Balance 1300.0 / 1437.5 1292.5 / 1292.5
Review of Systems
-
Unable to obtain full review of systems at this time due to: Dementia
Psych: Reports Anxious
Physical Exam
-
General: Cachectic
Respiratory: Clear to Auscultation
Cardiac: Murmur
Breast: Deferred by me
GI: Soft, Nontender, Nondistended and Normal Bowel Sounds
Rectal: Deferred by Provider
Genito-urinary: Deferred by me
Musculoskeletal: No Clubbing, No Cyanosis and No Edema
Skin: Warm, Dry and Other (Poor skin turgor)
Neuro: Nonfocal/Grossly Intact
Psych: Confused and Anxious
[2023-10-14] MEDS: APRESOLINE 5 MG IV (16:50)
[2023-10-14 16:57] LABS: Glucose - Point of Care 126 mg/dl (70-99)
[2023-10-14] MEDS: HEPARIN 2500 UNITS SC (19:09)
[2023-10-14] MEDS: APRESOLINE 10 MG IV (23:33)
[2023-10-14 23:47] LABS: Glucose - Point of Care 153 mg/dl (70-99)
[2023-10-15] VITALS (7 sets, daily range): BP systolic 133–174; BP diastolic 70–105; BMI 13.4
--- NOTE | 2023-10-15 05:13 | PTCARENOTE ---
Rec'd care of patient at 1900. Patient alert to self. Able to tell RN her name and . Confused conversation. VSS. 2300 vitals SBP >180. PRN Hydralazine administered. Patient restless after incontinent episodes of urine. No BM. Peripheral INT
capped. 4pt restraints and bed alarm remain on. Safe environment maintained.
[2023-10-15 05:50] LABS: Glucose - Point of Care 139 mg/dl (70-99)
[2023-10-15] MEDS: HEPARIN 2500 UNITS SC (07:42)
[2023-10-15 07:51] LABS: Glucose - Point of Care 140 mg/dl (70-99)
[2023-10-15] MEDS: TRANDATE 10 MG IV (08:06)
--- NOTE | 2023-10-15 08:24 | W.PN.HOSP.TC ---
Today's Communication/Plan
-
d/c
Assessment / Plan
Assessment / Plan
pt is an 88 year old female
Fall--unclear cause--mechanical? syncope? resulting in Subdural hematoma--CT of the head shows a small subdural hematoma with a size of 6 mm--apprec product development scientist and neurosurgery--PT/OT--serial CT scans without change--keep SBP < 160--add hydralazine
standing at d/c
Parkinson's with likely dementia-- Considering evaluation for Lewy body dementia
Aortic sclerosis murmur (presumed, last echo 2014)--Will defer checking echocardiogram to assess any changes since prior echo was conducted
Essential Hypertension--Initial blood pressure was 158/98 and it slowly increased to 188/108 during physical exam. Increased blood pressure may be due to agitation and pain s/p fall--cont hydralazine
gm neg bacilli in urine culture (> 100K despite not clean catch; urine sq cells >30)--start keflex at d/c
Hyperlipidemia--noted
Fmc-ciyfypa-dgxcwrngc type 2 diabetes--consider accuchecks and SSI
Cachexia--Patient's BMI is 12.9-- severe protein calorie malnutrition of chronic illness with wt loss and muscle/fat loss
DVT proph
code status --DNR/DNI
Had family meeting with patient's son and daughter on 10/14/23. Explained palliative care/hospice philosophy. I do not believe the patient meets criteria for hospice at this time. Family is in agreement. They wish to take her home. Case
management aware, however, family left before case management could arrange visiting nurses.
Anticipated Discharge: Today
Subjective/Interval History
-
Date of Service: October 15, 2023
pt had good night, no c/o
Objective Data
-
Vital Signs:
max temp for 24 hours
10/15/23
03:19
Temp 98.5 F
Vital Signs
Temp Pulse Resp BP Pulse Ox
98.4 F 76 14 133/80 96
10/15/23 08:06 10/14/23 23:30 10/14/23 23:30 10/15/23 02:00 10/15/23 02:00
I&O
10/14/23 10/15/23 10/16/23
06:59 06:59 06:59
Intake Total 1625.0 / 1762.5 1502.5 / 1502.5
Output Total 325 / 325
Balance 1300.0 / 1437.5 1502.5 / 1502.5
Review of Systems
-
Unable to obtain full review of systems at this time due to: Dementia
Physical Exam
-
General: Other (elderly, frail, cachechtic female in NAD)
HEENT: Normocephalic; Negative Atraumatic
Respiratory: Clear to Auscultation; Negative Wheezes or Rhonchi
Cardiac: Regular Rhythm, S1/S2 and Murmur
GI: Soft, Nontender, Nondistended and Normal Bowel Sounds
Musculoskeletal: No Clubbing, No Cyanosis and No Edema
Neuro: Tremors (pill rolling c/w Parkinson's)
Psych: Calm
--- NOTE | 2023-10-15 08:41 | PTCARENOTE ---
Rec'd care of patient at 0700. Patient alert to self. Able to tell RN her name and . Confused conversation. SBP >160. PRN labetalol administered. Patient restless after incontinent episodes of urine. No BM. Peripheral INT capped. Wrist
restraints and bed alarm remain on. Safe environment maintained.
--- NOTE | 2023-10-15 10:00 | CM ---
Addendum entered by Jay Adair 10/15/23 14:47:
CM met with pt'. pt's daughter Amy and son Nicholas. Both pt and her family are aware that PT recommends SNF level of are and they stated they do understand it and because of their mother dementia, she requires restraints and they feel that the best
will be to take the pt home with VN and son and daughter will continue to provide 24/7 care for pt at home. Pt's son stated that when home care will complete services they will be working on signing pt in on hospice care.
Pt's son and daughter requested transport chair. a script for a transport chair obtained from and LILI placed an order for a transport chair with [facility].
D/C plan: home with [facility], transport chair and family support. Son and daughter to transport home.
Addendum entered by Jay Adair 10/15/23 11:47:
CM spoke to pt's daughter Amy [phone] and she stated that she her her brother Nicholas who has POA will come to the hospital around 1:00 p.m. to bring their mother home. Pt's daughter stated that she and her brother are aware of their mother
discharge, expressed their agreement. IMM reviewed with pt's daughter over the phone, a copy left in pt's room.
Pt's daughter is notified that VN services recommended, she expressed her agreement. A list of VN vendors provided, VN preferred. A referral to [facility] made.
Please fax discharge instructions to [facility] at [phone]
D/C plan: home with [facility] and family support. Daughter Amy and son Nicholas to transport.
Original Note:
CM following re: discharge planning.
Reviewed pt's chart, met with pt.
Discharge order noted. Pt is not a great historian, unable to discuss discharge planning due to dx of Dementia. CM called pt's daughter, unable to leave a message. CM left a message to pt's son Nicholas.
PT/OT did not evaluate the pt yet.
Per MD, pt's family agrees to bring the pt home with after care VN services.
Awaiting for son to call back or family to come to discuss VN options/preference
[2023-10-15 11:57] LABS: Glucose - Point of Care 141 mg/dl (70-99)
--- NOTE | 2023-10-15 12:01 | PTCARENOTE ---
Discharge to home arranged by hospitalist. However, PT/OT at bedside strongly urged rehab. PT discussed with daughter, Pat and family agreed to rehab placement. See therapy note. Dr White notified.
--- NOTE | 2023-10-15 14:31 | W.DCSUMMARY ---
Discharge Summary
Discharge Data
Date of Admission: 10/13/23
Date of Discharge: 10/15/23
-
Pending Results: No
Hospital Course
Primary care physician : Maykel Hansen
Principal Discharge diagnosis : Fall with resultant subdural hematoma, gram-negative bacilli in urine culture
Chronic Discharge diagnosis : Parkinson's disease with dementia, essential hypertension, hyperlipidemia, fau-qopllcy-khnqntntp type 2 diabetes, severe protein calorie malnutrition due to chronic illness
Hospital Course : Patient is a 80-year-old female who lives with her family. The patient fell and her family heard a thud. When they arrived she was found on the floor and she was surrounded in blood. Patient had a fall in April however, family
is concerned about more frequent falling and weakness. Workup in the emergency department found her to have a scalp lesion which was stapled and subdural hematoma. Patient was admitted to the intensive care unit.
Problem #1: Fall with resultant subdural hematoma. It is unclear what caused the fall. Patient had a CAT scan of the head which showed a small subdural hematoma. She was seen in consultation by neurosurgery who stated that no surgical
intervention is required. Plan was to keep systolic blood pressure less than 160. This was accomplished by hydralazine and labetalol as needed. Repeat CAT scans of her head were stable. Patient also sustained a scalp laceration and the wound was
cleaned and justine were placed. Patient could not roughly October 19 or so.
Problem #2: Gram-negative bacilli in urine culture. This was found not to be a clean-catch specimen. However, there are greater than 100,000 gram-negative bacilli in her urine and we are waiting for the final identification of the bacteria in the
urine culture. Given this finding, I have elected to treat. Will start the patient on cephalexin 500 mg 3 times a day for 5 days.
Problem #3: All other medical issues. These include Parkinson's disease with dementia, essential hypertension, hyperlipidemia, bpv-esvledr-ntmgjaoqk type 2 diabetes, severe protein calorie malnutrition due to chronic illness. These medical issues
were stable during her hospitalization. Medications were continued as able.
Dr. Felder and I had a long conversation with the patient's son (POA) and daughter regarding hospice, palliative care. At the time of our conversation, they wish to take the patient home and were not interested in hospice at that time. On the
morning of October 15, 2023, family was notified that the patient would benefit from senior living facility for rehab. Case management has spoken to the family and have explained the pros and cons of a senior living facility (including the fact
that she is on restraints here). They are still of the mindset that they would like to take her home. Visiting nurses have been ordered. At this time, they are no longer against hospice and could transition her as an outpatient as they see fit.
Patient is stable for discharge home at this time. If there are any questions regarding this dictation or her hospital stay, please not hesitate to call. Our office number is [phone].
Time for discharge 33 minutes.
Important imaging findings :
INITIAL HEAD CT IMPRESSION:
Left parietal scalp soft tissue swelling/contusion. No skull fracture.
Small left inferior frontal lobe parenchymal contusion with volume of 0.1 mL. No associated mass effect.
Asymmetric thickening/increased attenuation involving the left tentorial leaflet, raising the possibility of subtle subdural hematoma.
Short-term follow-up recommended to assess stability.
3rd HEAD CT IMPRESSION:
Unchanged 5 to 6 mm hemorrhagic contusion within the inferior left frontal lobe. Unchanged subtle thickening of the left tentorium suspicious for a tiny subdural hematoma. No additional acute findings.
Discharge Plan
-
Patient Disposition: Home with Home Care
Discharge Diagnosis/Procedures: Fall with resultant subdural hematoma, Parkinson's disease with dementia, aortic sclerosis murmur, essential hypertension, hyperlipidemia, zzk-uwvahra-yttqtumbh type 2 diabetes, severe protein calorie malnutrition of
chronic illness, presumed urinary tract infection with gram-negative bacilli
Condition: Fair
Diet: As tolerated
Activity: As tolerated
Driving Restrictions: No driving
Bathing Restrictions: None
Other Services: VN, PT and OT
Activity Restrictions/Additional Instructions:
Patient justine are due to be taken out approximately October 20, 2023.
Referrals:
Maykel Hansen MD [Family Provider] - in less than 1 week
Prescriptions:
New
acetaminophen 325 mg Tablet
650 mg PO Q4HPRN PRN (Reason: temp greater than 38C (100.4F)) Qty: 0 0RF
hydralazine 25 mg tablet
25 mg PO TID Qty: 30 0RF
Rx Instructions:
hold for SBP < 120
cephalexin 500 mg capsule
500 mg PO TID Qty: 15 0RF
Discontinued
diphenhydramine-acetaminophen [Tylenol PM Extra Strength] 25-500 mg Tablet
1 tab PO HS
Discharge Orders:
Discharge Patient (As Directed); Ordered 10/15/23
Ordered By: Angella White
Discharge Date and Time
Print Language: SUDANESE
--- NOTE | 2023-10-15 15:03 | PTCARENOTE ---
Family to bedside and discussion with LILI Thompson. Family deciding to take pt home with plan to advance to hospice care. IV removed. Pt dressed and assisted to WC. Escorted out and assisted to son's car without incident.
[2023-10-16 07:52] LABS: Glucose - Point of Care 183 mg/dl (70-99)
== END 2023-10-15 14:54 | disposition home health service (06) | DRG 82 ==
LOC: ICU 11:15
PROVIDERS: ADMITTING PHYSICIAN Internal Medicine; CONSULT PHYSICIAN Internal Medicine Critical Care Medicine; CONSULT PHYSICIAN Neurological Surgery; EMERGENCY PHYSICIAN Emergency Medicine; FAMILY PHYSICIAN Family Medicine
PROC: 0HQ0XZZ Repair Scalp Skin, External Approach (ICD-10-PCS; 2023-10-13)
DX: S06.5XAA Traumatic subdural hemorrhage with loss of consciousness status unknown, initial encounter (principal); E43 Unspecified severe protein-calorie malnutrition; R64 Cachexia; Z68.1 Body mass index [BMI] 19.9 or less, adult; W19.XXXA Unspecified fall, initial encounter; G20.A1 Parkinson's disease without dyskinesia, without mention of fluctuations; F02.C0 Dementia in other diseases classified elsewhere, severe, without behavioral disturbance, psychotic disturbance, mood disturbance, and anxiety; I70.0 Atherosclerosis of aorta; I10 Essential (primary) hypertension; E78.00 Pure hypercholesterolemia, unspecified; E11.9 Type 2 diabetes mellitus without complications; R29.6 Repeated falls; S01.01XA Laceration without foreign body of scalp, initial encounter; Z66 Do not resuscitate; R82.71 Bacteriuria; Z87.440 Personal history of urinary (tract) infections; Z78.1 Physical restraint status
CPT/HCPCS: 12001; 70450; 72125; 80053; 80061; 81003; 81015; 82962; 83036; 83735; 84443; 84484; 85025; 85027; 85610; 85730; 87077; 87086; 87186; 92507; 92523; 92526; 92610; 96374; 96375; 97163; 97167; 97530; 99285

== ENCOUNTER 2024-01-13 19:05 | Emergency (ER) | payer OTHER, SELFPAY ==
[2024-01-13 19:08] VITALS: BP 149/90
[2024-01-13 20:01] VITALS: BP 178/74
--- NOTE | 2024-01-13 20:30 | ED.GENMED ---
History of Present Illness
General
Chief Complaint: Fall
Source: patient, family (Daughter at bedside), ambulance crew and previous hospital records (Previous hospitalization October of this year after suffering a fall with small subdural hematoma)
Exam Limitations: altered mental status
Time Seen by Provider: 01/13/24 19:22
Nursing documentation reviewed up to this point in time: agreed with
History of Present Illness
History of Present Illness:
This is an 88-year-old quite frail woman who resides at home with family. She has history of dementia, Parkinson's disease, UTIs with history of fall October 2023 suffering posterior scalp laceration as well as small subdural hematoma. Treated
conservatively.
According to family patient was noted to be lying on the floor at 3 AM upon checking her last night but they did not hear a thud nor commotion and reported often times patient lies next to her bed to sleep.
Upon recheck at 5 AM daughter noticed significant bruising left forehead and some bruising around her left eye and she suspected that she fell sometime last night.
She has had no recurrent falls, she did eat her 3 meals today and seemed well and at her baseline until tonight when she seemed more confused thus prompted ED evaluation.
According to EMS she was able to walk out of the home to the ambulance with mild assistance.
She takes no anticoagulants.
Past History
Past History
ED Past Medical History: HTN, Hypercholesterolemia, NIDDM and Other (Urinary tract infections, dementia/Parkinson's; fall with small subdural hematoma October 2023)
ED Past Surgical History: None
Social History
Tobacco: Non-smoker
Alcohol: None
Living: with family
Family History
Family History: Other (Noncontributory)
Phy Exam
Physical Exam
Physical Exam:
TRAUMA EXAM:
VITAL SIGNS: Vital signs reviewed, cooperative
DISTRESS: No active disease
EYES: Bilateral raccoon eyes with moderate bilateral periorbital ecchymosis. Pupils are 3 mm bilaterally and briskly reactive. Questionable very minimal restriction of right eye lateral gaze as well as right eye upward gaze otherwise extraocular
muscles are full.
NOSE: No deformity or epistaxis
FACE AND SCALP: There is bilateral forehead ecchymosis with moderate soft hematoma left forehead.
NECK: Supple nontender
BACK: Back nontender, pelvis stable to compression
RESPIRATORY: No distress, breath sounds normal, no tender chest wall
CARDIAC: 3/6 systolic murmur left sternal border. Heart is regular rate with occasional ectopy. Pulses equal and strong
ABDOMEN: Soft nontender bowel sounds normal
SKIN: Skin intact no bleeding, color normal
EXTREMITIES: Nontender, full range of motion without difficulty nor pain.
NEUROLOGICAL: GCS of 14, opens eyes to command. Oriented x 1. No focal weakness.
PSYCH: Mood affect normal
Course
Orders/Labs/Results
Orders:
Orders
01/13/24 19:07
CT Cervical Spine W/o Iv Contr Urgent
Comment:
Reason For Exam: fall with head strike
CT Head W/o Iv Contrast Urgent
Comment:
Reason For Exam: fall with head strike
Facial Bones wo Contrast CT [CT Facial Bones W/o Iv Contras] Urgent
Comment:
Reason For Exam: fall with head strike
01/13/24 20:43
Cardiac Monitoring- Treatment ONCE
01/13/24 20:53
Complete Blood Count/With Diff Urgent
Comprehensive Metabolic Panel Urgent
Protime/PTT Urgent
01/13/24 21:10
Portable Chest Xray [CR Chest Portable - 1 View] Urgent
Comment:
Reason For Exam: mechanical fall/confused
Reason Study Needs to be Portable: Unable to Transport
Abnormal Lab Results
01/13/24
20:53
RBC 3.26 L 10^6/uL
(4.20-5.40)
Hgb 10.9 L g/dL
(12.0-16.0)
Hct 30.9 L %
(37.0-47.0)
MCH 33.4 H pg
(27.0-31.0)
Absolute Monos (auto) 1.0 H 10^3/uL
(0.1-0.6)
Monocytes % 11.2 H %
(1.7-9.3)
Potassium 3.2 L mmol/L
(3.5-5.1)
Carbon Dioxide 31 H mmol/L
(22-30)
BUN 23 H mg/dl
(7-17)
Glucose 102 H mg/dl
(70-99)
01/13/24 20:53
01/13/24 20:53
Vital Signs
Initial and Last Documented VS:
Initial Vital Signs
Temp Pulse Resp BP Pulse Ox
98.0 F 65 16 149/90 99
01/13/24 19:08 01/13/24 19:08 01/13/24 19:08 01/13/24 19:08 01/13/24 19:08
Last Documented Vital Signs
Temp Pulse Resp BP Pulse Ox
98.0 F 56 10 166/77 97
01/13/24 19:08 01/13/24 22:00 01/13/24 22:00 01/13/24 22:00 01/13/24 21:45
MDM/Problems Addressed
Differential Diagnosis Includes:
Significant concern for acute traumatic intracranial bleeding, concern for skull/orbital fracture.
Will check CT of the head, cervical spine facial bones.
Chronic conditions affecting care: Neurological disorder (Dementia, Parkinson's disease)
*Radiology
Radiology exam reviewed: preliminary read by ED provider (Chest x-ray shows mild to moderate elevation of the right hemidiaphragm. Compression deformity to the lower thoracic vertebra age indeterminate.) and radiology read reviewed
*Pulse Oximetry
Patient hypoxic: no
*Critical Care Note
Total Time (30-74mins, 75-104mins- exclusive of procedures): Not Applicable
Update Note
Update Note:
01/13/2024 2038 PM
CAT scan shows left-sided subdural hematoma with mass effect.
Patient remains hemodynamically stable, GCS of 14.
Daughter has gone home prior to CAT scan results. We have placed a call and left a message for her to return a call.
I have spoken with [facility] trauma attending Dr. Birch who accepts the patient and will plan for ED to ED transfer.
ED Attending Note
-
Portions of this chart may have been created with voice recognition software.� Occasional wrong word or��sound alike� substitutions may have occurred due to the inherent limitations of voice recognition software.
Discharge Plan
Departure
Patient Disposition: Acute Care Hospital
Date of Disposition: 01/13/24
Time of Disposition: 20:38
Condition: Serious
Discharge Problem:
subdural hematoma with mass effect
Prescriptions:
No Action
acetaminophen 325 mg Tablet
650 mg PO Q4HPRN PRN (Reason: temp greater than 38C (100.4F)) Qty: 0 0RF
hydralazine 25 mg tablet
25 mg PO TID Qty: 30 0RF
Rx Instructions:
hold for SBP < 120
cephalexin 500 mg capsule
500 mg PO TID Qty: 15 0RF
Referrals:
UNKNOWN - PT NOT,INTERVIEWE [Family Provider] -
Hospital Transfer
Other hospital: [facility]
I certify that the patient requires transfer: Yes
Discussed case with accepting physician: [facility]
Reason for transfer: higher level of care and specialties available
Interventions
Interventions:
*Risk Screen - Suicide Last Done: 01/13/24 19:08
*General Assessment Last Done: 01/13/24 19:08
*Neglect/Abuse Screening Last Done: 01/13/24 19:08
*ED COVID-19 Vaccine History Last Done: 01/13/24 19:08
*Nursing Disposition Last Done: 01/13/24 22:35
ED-Musculoskeletal Assessment Last Done: 01/13/24 19:10
ED- Neurological Assessment Last Done: 01/13/24 19:10
ED-Skin Assessment Last Done: 01/13/24 19:10
Discharge Date and Time
Discharge Date/Time: 01/13/24 22:36
Print Language: MACEDONIAN
[2024-01-13 21:00] VITALS: BP 168/82
[2024-01-13 21:00] LABS: % Basophils 0.9 % (0-2); % Eosinophils 1.3 % (0-6); % Immature Granulocytes 0.3 % (0-0.5); % Monocytes 11.2 % (1.7-9.3); % Neutrophils 63.3 % (42.2-75.2); Absolute Basophils 0.1 10^3/uL (0-0.2); Absolute Eosinophils 0.1 10^3/uL (0-0.7); Absolute Lymphocytes 2.1 10^3/uL (1.2-3.4); Absolute Neutrophils 5.8 10^3/uL (1.4-6.5); Hematocrit 30.9 % (37.0-47.0); Hemoglobin 10.9 g/dL (12.0-16.0); Mean Corp Hgb Conc. 35.3 g/dL (33.0-37.0); Mean Corpuscular Hgb 33.4 pg (27.0-31.0); Mean Corpuscular Volume 94.8 fL (81.0-99.0); Mean Platelet Volume 9.2 fL (7.4-10.4); Nucleated Red Blood Cells % 0 %; Platelet Count 253 10^3/uL (130-400); Red Blood Cell Count 3.26 10^6/uL (4.20-5.40); Red Cell Dist. Width 13.1 % (11.5-14.5); White Blood Cell Count 9.1 10^3/uL (4.8-10.8)
[2024-01-13 21:11] LABS: INR 1.03; PT 13.3 Sec (11.4-14.6)
[2024-01-13 21:12] LABS: APTT 26.3 Sec (23.4-35.0)
[2024-01-13 21:16] LABS: ALT (SGPT) 15 U/L (0-35); AST (SGOT) 17 U/L (14-36); Albumin 3.9 g/dl (3.5-5.0); Alkaline Phosphatase 79 U/L (38-126); Blood Urea Nitrogen 23 mg/dl (7-17); Calcium 9.3 mg/dl (8.4-10.2); Carbon Dioxide 31 mmol/L (22-30); Chloride 104 mmol/L (98-107); Glucose 102 mg/dl (70-99); Potassium 3.2 mmol/L (3.5-5.1); Sodium 144 mmol/L (135-145); Total Bilirubin 0.7 mg/dl (0.2-1.3); Total Protein 6.6 g/dl (6.3-8.2); eGFR > 60.00
[2024-01-13 22:00] VITALS: BP 166/77
== END 2024-01-13 22:36 | disposition short-term general hospital (02) ==
LOC: EMR 19:05
PROVIDERS: EMERGENCY PHYSICIAN Emergency Medicine
DX: S06.5X0A Traumatic subdural hemorrhage without loss of consciousness, initial encounter (principal); S00.12XA Contusion of left eyelid and periocular area, initial encounter; S00.11XA Contusion of right eyelid and periocular area, initial encounter; S00.83XA Contusion of other part of head, initial encounter; M48.54XA Collapsed vertebra, not elsewhere classified, thoracic region, initial encounter for fracture; R41.0 Disorientation, unspecified; W19.XXXA Unspecified fall, initial encounter; Y92.003 Bedroom of unspecified non-institutional (private) residence as the place of occurrence of the external cause; F02.80 Dementia in other diseases classified elsewhere, unspecified severity, without behavioral disturbance, psychotic disturbance, mood disturbance, and anxiety; G20.A1 Parkinson's disease without dyskinesia, without mention of fluctuations; E11.9 Type 2 diabetes mellitus without complications; E78.00 Pure hypercholesterolemia, unspecified; I10 Essential (primary) hypertension; Z87.440 Personal history of urinary (tract) infections
CPT/HCPCS: 99285; 70450; 70486; 71045; 72125; 80053; 85025; 85610; 85730